=== PATIENT | female | born 1980 ===

== ENCOUNTER 2024-05-22 06:26 | Day surgery (SDC) | payer BC, SELFPAY | END 2024-05-22 14:07 | disposition home or self-care (01) | LOC: GI 06:26 | PROVIDERS: ATTENDING PHYSICIAN Internal Medicine Gastroenterology | DX: Z12.11 Encounter for screening for malignant neoplasm of colon (principal); K64.8 Other hemorrhoids; D50.9 Iron deficiency anemia, unspecified; D12.3 Benign neoplasm of transverse colon | CPT/HCPCS: 45385; 43239; 88305 ==